=== PATIENT | female | born 1940 | race Native Hawaiian/Other Pacific Islander ===

== ENCOUNTER 2016-07-31 10:22 | Inpatient (IN) | payer OTHER, MEDICARE ==
[~2016-07-31] VITALS: Ht 134.6 cm; Wt 54.2 kg
[~2016-07-31 10:22] MED LIST: CALTRATE 600+D1 TAB OR; CLINDAMYCIN300 MG OR; CLON0.5T36 PO; FURO20TA67 PO; GLIP5TAB65 PO; HYDR-3182 PO; HYZAAR1 TA1 PO; METF500T PO; PRAMIPEXOLE0.5 MG OR; SERT50TA PO; SIMV20TA2 PO; TRAM50TA PO
[2016-07-31 11:19] LABS: PLATELET COUNT 147 K/uL (152-353)
[2016-07-31 11:41] LABS: POTASSIUM 3.9 mmol/L (3.6-5.2); SODIUM 140 mmol/L (136-145)
[2016-07-31 13:39] VITALS: BP 133/71; TEMP 97.7; Ht 134.6 cm; Wt 54.2 kg
[2016-07-31 16:00] VITALS: BP 150/51; TEMP 97.4
[2016-07-31 20:00] VITALS: BP 165/76; TEMP 97.9
[2016-08-01] VITALS: BP 155/72; TEMP 97.4
[2016-08-01 04:00] VITALS: BP 160/75; TEMP 97.8
[2016-08-01 04:47] LABS: PLATELET COUNT 131 K/uL (152-353)
[2016-08-01 04:58] LABS: POTASSIUM 3.4 mmol/L (3.6-5.2); SODIUM 140 mmol/L (136-145)
[2016-08-01 08:00] VITALS: BP 136/59; TEMP 98
[2016-08-01 12:00] VITALS: BP 120/60; TEMP 98.1
[2016-08-01 16:00] VITALS: BP 143/76; TEMP 98.3
[2016-08-01 20:00] VITALS: BP 138/74; TEMP 98.1
[2016-08-02 00:17] VITALS: BP 170/77; TEMP 98.4
[2016-08-02 02:06] LABS: PLATELET COUNT 136 K/uL (152-353)
[2016-08-02 02:20] LABS: POTASSIUM 3.4 mmol/L (3.6-5.2); SODIUM 143 mmol/L (136-145)
[2016-08-02 04:00] VITALS: BP 173/70; TEMP 98.1
[2016-08-02 07:52] VITALS: BP 183/92; TEMP 98.2
[2016-08-02 12:00] VITALS: BP 154/78; TEMP 97.9
== END 2016-08-02 15:45 | disposition home or self-care (01) | DRG 391 ==
LOC: MED/SURG 10:22
PROVIDERS: Emergency Medicine
DX: A08.8 Other specified intestinal infections (principal); J18.8 Other pneumonia, unspecified organism; E87.6 Hypokalemia; E11.9 Type 2 diabetes mellitus without complications; E83.42 Hypomagnesemia; D64.89 Other specified anemias; R39.2 Extrarenal uremia; E88.09 Other disorders of plasma-protein metabolism, not elsewhere classified; R07.89 Other chest pain; A08.39 Other viral enteritis
CPT/HCPCS: 36415; 36591; 80053; 80202; 81000; 82150; 82272; 82550; 82948; 83690; 83735; 84484; 85027; 87040; 87045; 87070; 87077; 87205; 87493; 87798; 87899; 93005; 94640; 94664; 94760; 96361; 96365; 96366; 96372; 96374; 96375; 99220; 99284; G0378; J1650; J2270; J2405; Q9963

== ENCOUNTER 2016-08-11 09:19 | Outpatient (CLI) | payer OTHER, MEDICARE ==
[2016-08-11 09:58] LABS: PLATELET COUNT 146 K/uL (152-353)
[2016-08-11 10:20] LABS: POTASSIUM 3.4 mmol/L (3.6-5.2)
== END 2016-08-11 19:09 | disposition home or self-care (01) ==
LOC: LABW 09:19
PROVIDERS: Internal Medicine
DX: D64.89 Other specified anemias (principal)
CPT/HCPCS: 36415; 80053; 85027

== ENCOUNTER 2017-03-12 15:25 | Outpatient (CLI) | payer OTHER, MEDICARE | END 2017-03-12 16:39 | disposition short-term general hospital (02) | LOC: AMB 15:25 | DX: M54.2 Cervicalgia (principal); G89.18 Other acute postprocedural pain | CPT/HCPCS: A0425; A0429 ==

== ENCOUNTER 2017-03-12 17:00 | Inpatient (IN) | payer OTHER, MEDICARE ==
[~2017-03-12] VITALS: Ht 152.4 cm; Wt 51.4 kg
[2017-03-12 18:00] VITALS: BP 111/65; TEMP 98.8; Ht 152.4 cm; Wt 51.4 kg
[2017-03-13 08:00] VITALS: BP 166/70; TEMP 97.4
[2017-03-14 09:22] VITALS: BP 118/61; TEMP 97.8
[2017-03-14 20:29] VITALS: BP 107/52; TEMP 98.4
[2017-03-15 08:00] VITALS: BP 140/71; TEMP 99.6
[2017-03-15 20:00] VITALS: BP 118/68; TEMP 97.7
[2017-03-16 08:00] VITALS: BP 133/77; TEMP 98.4
[2017-03-17 08:16] VITALS: BP 136/88; TEMP 98.1
[2017-03-19 07:39] LABS: PLATELET COUNT 182 K/uL (152-353)
[2017-03-19 08:04] LABS: POTASSIUM 3.9 mmol/L (3.6-5.2)
[2017-03-19 20:17] VITALS: BP 103/66; TEMP 98.3
[2017-03-20 08:00] VITALS: BP 128/66; TEMP 97.8
[2017-03-20 20:00] VITALS: BP 92/53; TEMP 98.2
[2017-03-21 08:00] VITALS: BP 90/53; TEMP 98.6
[2017-03-22 08:00] VITALS: BP 113/50; TEMP 98
[2017-03-23 06:03] LABS: POTASSIUM 3.3 mmol/L (3.6-5.2); SODIUM 131 mmol/L (136-145)
[2017-03-23 08:00] VITALS: BP 95/56; TEMP 97.5
[2017-03-23 20:00] VITALS: BP 92/55; TEMP 98.8
[2017-03-24 08:00] VITALS: BP 96/51; TEMP 99.1
[2017-03-24 20:00] VITALS: BP 107/66; TEMP 98.4
[2017-03-25 20:00] VITALS: BP 114/67; TEMP 99.1
[2017-03-26 08:15] VITALS: BP 112/66; TEMP 97.8
[2017-03-27 08:00] VITALS: BP 117/70; TEMP 98
[2017-03-28 08:18] VITALS: BP 151/79; TEMP 98.6
[2017-03-28 20:00] VITALS: BP 115/63; TEMP 98.7
== END 2017-03-29 16:07 | disposition home or self-care (01) | DRG 556 ==
LOC: MED/SURG 17:00
PROVIDERS: ADMIT Internal Medicine
DX: M62.81 Muscle weakness (generalized) (principal); Z47.89 Encounter for other orthopedic aftercare; M54.2 Cervicalgia
CPT/HCPCS: 36415; 80053; 82948; 85027; 94760; J1956

== ENCOUNTER 2017-05-24 09:56 | Outpatient (CLI) | payer OTHER, MEDICARE ==
[2017-05-24 10:28] LABS: PLATELET COUNT 170 K/uL (152-353)
[2017-05-24 11:02] LABS: POTASSIUM 3.7 mmol/L (3.6-5.2)
== END 2017-05-24 22:17 | disposition home or self-care (01) ==
LOC: LABW 09:56
PROVIDERS: Internal Medicine
DX: E11.41 Type 2 diabetes mellitus with diabetic mononeuropathy (principal)
CPT/HCPCS: 36415; 80053; 80061; 81000; 82043; 82570; 83036; 84439; 84443; 85027

== ENCOUNTER 2017-08-29 09:25 | Outpatient (CLI) | payer OTHER, MEDICARE ==
[2017-08-29 10:08] LABS: PLATELET COUNT 162 K/uL (152-353)
== END 2017-08-29 21:52 | disposition home or self-care (01) ==
LOC: LABW 09:25
PROVIDERS: Internal Medicine
DX: E11.41 Type 2 diabetes mellitus with diabetic mononeuropathy (principal); E03.8 Other specified hypothyroidism
CPT/HCPCS: 36415; 83036; 84439; 84443; 85027

== ENCOUNTER 2017-09-18 10:35 | Outpatient (CLI) | payer OTHER, MEDICARE ==
[2017-09-18 11:00] LABS: POTASSIUM 3.4 mmol/L (3.6-5.2)
== END 2017-09-18 22:23 | disposition home or self-care (01) ==
LOC: LABW 10:35
PROVIDERS: Internal Medicine Rheumatology
DX: M81.0 Age-related osteoporosis without current pathological fracture (principal)
CPT/HCPCS: 36415; 80048

== ENCOUNTER 2018-03-19 10:48 | Outpatient (CLI) | payer OTHER, MEDICARE ==
[2018-03-19 11:19] LABS: PLATELET COUNT 152 K/uL (152-353)
[2018-03-19 11:46] LABS: POTASSIUM 3.8 mmol/L (3.6-5.2)
== END 2018-03-19 21:26 | disposition home or self-care (01) ==
LOC: LABW 10:48
PROVIDERS: Internal Medicine
DX: Z00.00 Encounter for general adult medical examination without abnormal findings (principal); E11.9 Type 2 diabetes mellitus without complications; I10 Essential (primary) hypertension; R82.998 Other abnormal findings in urine
CPT/HCPCS: 36415; 80053; 80061; 81000; 84439; 84443; 85027; 87077; 87086; 87088; 87186

== ENCOUNTER 2018-03-26 11:25 | Outpatient (CLI) | payer OTHER, MEDICARE ==
[~2018-03-26] VITALS: Ht 137.2 cm; Wt 54.4 kg
== END 2018-03-26 22:11 | disposition home or self-care (01) ==
LOC: INF 11:25
DX: N39.0 Urinary tract infection, site not specified (principal)
CPT/HCPCS: 96365; J0696

== ENCOUNTER 2018-03-27 07:56 | Outpatient (CLI) | payer OTHER, MEDICARE ==
[~2018-03-27] VITALS: Ht 137.2 cm; Wt 54.4 kg
[2018-03-27 10:10] VITALS: BP 127/67; TEMP 98
== END 2018-03-27 11:05 | disposition home or self-care (01) ==
LOC: INF 07:56
DX: N39.0 Urinary tract infection, site not specified (principal)
CPT/HCPCS: 96365; J0696

== ENCOUNTER 2018-03-28 09:13 | Outpatient (CLI) | payer OTHER, MEDICARE ==
[~2018-03-28] VITALS: Ht 137.2 cm; Wt 54.4 kg
== END 2018-03-28 23:24 | disposition home or self-care (01) ==
LOC: INF 09:13
DX: N39.0 Urinary tract infection, site not specified (principal)
CPT/HCPCS: 96365; J0696

== ENCOUNTER 2018-03-29 09:34 | Outpatient (CLI) | payer OTHER, MEDICARE ==
[~2018-03-29] VITALS: Ht 137.2 cm; Wt 54.4 kg
== END 2018-03-29 20:50 | disposition home or self-care (01) ==
LOC: INF 09:34
DX: N39.0 Urinary tract infection, site not specified (principal)
CPT/HCPCS: 96365; J0696

== ENCOUNTER 2018-03-30 07:45 | Outpatient (CLI) | payer OTHER, MEDICARE ==
[~2018-03-30] VITALS: Ht 137.2 cm; Wt 54.4 kg
== END 2018-03-30 18:49 | disposition home or self-care (01) ==
LOC: INF 07:45
DX: N39.0 Urinary tract infection, site not specified (principal)
CPT/HCPCS: 96365; J0696

== ENCOUNTER 2018-03-31 07:52 | Outpatient (CLI) | payer OTHER, MEDICARE ==
[~2018-03-31] VITALS: Ht 137.2 cm; Wt 54.4 kg
== END 2018-03-31 19:05 | disposition home or self-care (01) ==
LOC: INF 07:52
DX: N39.0 Urinary tract infection, site not specified (principal)
CPT/HCPCS: 96365; J0696

== ENCOUNTER 2018-04-01 09:59 | Outpatient (CLI) | payer OTHER, MEDICARE ==
[~2018-04-01] VITALS: Ht 137.2 cm; Wt 54.4 kg
[2018-04-01 10:10] VITALS: BP 110/64; TEMP 97.9
== END 2018-04-01 11:15 | disposition home or self-care (01) ==
LOC: INF 09:59
DX: N39.0 Urinary tract infection, site not specified (principal)
CPT/HCPCS: 96365; J0696

== ENCOUNTER 2018-08-23 08:57 | Outpatient (CLI) | payer OTHER, MEDICARE ==
[2018-08-23 09:42] LABS: PLATELET COUNT 175 K/uL (152-353)
[2018-08-23 10:04] LABS: POTASSIUM 4.4 mmol/L (3.6-5.2)
== END 2018-08-23 23:17 | disposition home or self-care (01) ==
LOC: LABW 08:57
PROVIDERS: Internal Medicine
DX: E11.9 Type 2 diabetes mellitus without complications (principal)
CPT/HCPCS: 36415; 80053; 80061; 81000; 82043; 82570; 83036; 84439; 84443; 85027

== ENCOUNTER 2018-10-18 10:06 | Outpatient (CLI) | payer OTHER, MEDICARE | END 2018-10-18 20:41 | disposition home or self-care (01) | LOC: RAD 10:06 | DX: M79.604 Pain in right leg (principal) ==

== ENCOUNTER 2018-10-31 09:22 | Outpatient (CLI) | payer OTHER, MEDICARE | END 2018-10-31 23:03 | disposition home or self-care (01) | LOC: US 09:22 | DX: M79.604 Pain in right leg (principal) ==

== ENCOUNTER 2019-03-03 13:58 | Outpatient (CLI) | payer OTHER, MEDICARE ==
[2019-03-03 14:24] LABS: PLATELET COUNT 184 K/uL (152-353)
[2019-03-03 14:55] LABS: POTASSIUM 3.9 mmol/L (3.6-5.2)
== END 2019-03-03 21:10 | disposition home or self-care (01) ==
LOC: LAB 13:58
PROVIDERS: Physician Assistant
DX: E11.9 Type 2 diabetes mellitus without complications (principal); I10 Essential (primary) hypertension; R26.81 Unsteadiness on feet
CPT/HCPCS: 80053; 82607; 84443; 85027

== ENCOUNTER 2019-05-08 08:45 | Outpatient (CLI) | payer OTHER, MEDICARE | END 2019-05-08 23:04 | disposition home or self-care (01) | LOC: LABW 08:45 | PROVIDERS: Internal Medicine Rheumatology | DX: M81.0 Age-related osteoporosis without current pathological fracture (principal) | CPT/HCPCS: 36415; 80048 ==

== ENCOUNTER 2019-06-03 10:46 | Emergency (ER) | payer OTHER, MEDICARE ==
[~2019-06-03] VITALS: Ht 137.2 cm; Wt 54.5 kg
[2019-06-03 11:03] VITALS: TEMP 98.6
[2019-06-03 13:46] VITALS: BP 158/68
== END 2019-06-03 13:47 | disposition home or self-care (01) ==
LOC: ED 10:46
DX: S30.0XXA Contusion of lower back and pelvis, initial encounter (principal); S22.088A Other fracture of T11-T12 vertebra, initial encounter for closed fracture; W18.39XA Other fall on same level, initial encounter; Y92.098 Other place in other non-institutional residence as the place of occurrence of the external cause
CPT/HCPCS: 99283

== ENCOUNTER 2019-10-06 14:33 | Outpatient (CLI) | payer OTHER, MEDICARE ==
[2019-10-06 15:12] LABS: PLATELET COUNT 180 K/uL (152-353)
== END 2019-10-06 19:32 | disposition home or self-care (01) ==
LOC: LABW 14:33
PROVIDERS: Internal Medicine
DX: E11.69 Type 2 diabetes mellitus with other specified complication (principal)
CPT/HCPCS: 80053; 80061; 81000; 83036; 84439; 84443; 85027

== ENCOUNTER 2020-03-19 10:22 | Outpatient (CLI) | payer OTHER, MEDICARE ==
[2020-03-19 11:19] LABS: PLATELET COUNT 168 K/uL (152-353)
[2020-03-19 11:40] LABS: POTASSIUM 3.5 mmol/L (3.6-5.2)
== END 2020-03-19 18:57 | disposition home or self-care (01) ==
LOC: LAB 10:22
PROVIDERS: ATTEND Internal Medicine
DX: E11.9 Type 2 diabetes mellitus without complications (principal)
CPT/HCPCS: 80053; 80061; 81000; 83036; 84439; 84443; 85027

== ENCOUNTER 2020-07-21 15:12 | Outpatient (CLI) | payer OTHER, MEDICARE | END 2020-07-21 20:33 | disposition home or self-care (01) | LOC: INF 15:12 | PROVIDERS: ATTEND Internal Medicine | DX: Z23 Encounter for immunization (principal) | CPT/HCPCS: 96372 ==

== ENCOUNTER 2020-08-19 09:45 | Outpatient (CLI) | payer OTHER, MEDICARE | END 2020-08-19 20:26 | disposition home or self-care (01) | LOC: INF 09:45 | PROVIDERS: ATTEND Internal Medicine | DX: Z23 Encounter for immunization (principal) | CPT/HCPCS: 96372 ==

== ENCOUNTER 2020-10-20 09:27 | Outpatient (CLI) | payer OTHER, MEDICARE | END 2020-10-20 22:11 | disposition home or self-care (01) | LOC: RAD 09:27 | PROVIDERS: ATTEND Internal Medicine Gastroenterology | DX: R13.19 Other dysphagia (principal) ==

== ENCOUNTER 2020-12-23 09:23 | Outpatient (CLI) | payer OTHER, MEDICARE ==
[2020-12-23 10:43] LABS: PLATELET COUNT 149 K/uL (152-353)
[2020-12-23 11:55] LABS: POTASSIUM 3.6 mmol/L (3.6-5.2)
== END 2020-12-23 19:09 | disposition home or self-care (01) ==
LOC: LABW 09:23
PROVIDERS: ATTEND Internal Medicine
DX: E11.9 Type 2 diabetes mellitus without complications (principal); E03.8 Other specified hypothyroidism
CPT/HCPCS: 36415; 80053; 80061; 81000; 82043; 83036; 84439; 84443; 85027

== ENCOUNTER 2021-06-03 09:28 | Outpatient (CLI) | payer OTHER, MEDICARE | END 2021-06-03 20:01 | disposition home or self-care (01) | LOC: RAD 09:28 | PROVIDERS: ATTEND Internal Medicine | DX: M25.512 Pain in left shoulder (principal) ==

== ENCOUNTER 2021-06-08 09:36 | Outpatient (CLI) | payer OTHER, MEDICARE ==
[2021-06-08 10:03] LABS: PLATELET COUNT 124 K/uL (152-353)
[2021-06-08 10:34] LABS: POTASSIUM 3.9 mmol/L (3.6-5.2)
== END 2021-06-08 19:20 | disposition home or self-care (01) ==
LOC: LABW 09:36
PROVIDERS: ATTEND Internal Medicine
DX: E11.9 Type 2 diabetes mellitus without complications (principal)
CPT/HCPCS: 36415; 80053; 80061; 81000; 83036; 84439; 84443; 85027

== ENCOUNTER 2022-01-31 15:53 | Outpatient (CLI) | payer OTHER, MEDICARE ==
[2022-01-31 16:13] LABS: PLATELET COUNT 168 K/uL (152-353)
[2022-01-31 16:34] LABS: POTASSIUM 4.2 mmol/L (3.6-5.2)
== END 2022-01-31 20:34 | disposition home or self-care (01) ==
LOC: LAB 15:53
PROVIDERS: ATTEND Internal Medicine
DX: E11.9 Type 2 diabetes mellitus without complications (principal)
CPT/HCPCS: 80053; 80061; 83036; 84439; 84443; 85027